=== PATIENT | female | born 1970 | race Caucasian/White ===

== ENCOUNTER 2024-07-17 08:19 | Outpatient (CLI) | payer OTHER, SELFPAY ==
--- NOTE | ~2024-07-17 | XR_ITS ---
Left Hand Technique: PA, oblique, and lateral views were obtained. Clinical History: Pain Findings: No acute fracture or dislocation is seen. Osseous alignment is anatomic. There is mild to m oderate degenerative change of the interphalangeal joint of the thumb. There is mild to moderate dege nerative change of the first CMC joint. Soft tissues are unremarkable. Impression: Degenerative changes of the thumb, as above. Reviewed, dictated and finalized at location M. Impression: Degenerative changes of the thumb, as above.
--- NOTE | ~2024-07-17 | XR_ITS ---
Left foot Technique: AP, oblique, and lateral views were obtained. Clinical History: Pain Findings: No acute fracture or dislocation is seen. There is chronic appearing cortical thickening al carlos the second, third, fourth metatarsal shaft, nonspecific. Osseous alignment is anatomic. Joint spa joie are preserved without erosive or degenerative change. Soft tissues are unremarkable. Impression: No acute reality. Reviewed, dictated and finalized at location . Impression: No acute reality.
--- NOTE | ~2024-07-17 | XR_ITS ---
Right elbow Technique: AP and lateral views were obtained. Clinical History: Pain Findings: No acute fracture or dislocation is seen. Osseous alignment is anatomic. Joint spaces are p reserved. There is no displacement of the fat pads, and soft tissues are unremarkable. Impression: Unremarkable radiographs. Reviewed, dictated and finalized at location . Impression: Unremarkable radiographs.
== END 2024-07-17 08:20 | disposition home or self-care (01) ==
LOC: MICIMG 08:23
PROVIDERS: PCP Emergency Medicine Emergency Medical Services; Visit Provider Emergency Medicine Emergency Medical Services
DX: M25.50 Pain in unspecified joint (principal); M24.521 Contracture, right elbow
CPT/HCPCS: 73070; 73130; 73630